=== PATIENT | male | born 1960 | race Caucasian/White ===

== ENCOUNTER 2021-01-16 10:46 | Day surgery (SDC) | payer BC ==
[~2021-01-16] VITALS: Ht 188 cm; Wt 100.5 kg
[~2021-01-16 10:46] MED LIST: AMLO10 PO; ATEN50 PO; Azopt10 ML BOTHEYES; Azopt10 ML LEFTEYE; FERROUS SULFAT325 M3 PO; LISHYD2025 PO; LISINOPRIL-HCT1 EAC1 PO; METF500 PO; NORVASC10 MG PO; Prinivil10 MG PO
== END 2021-01-16 13:27 | disposition home or self-care (01) ==
LOC: ORSCSDS 10:46
PROVIDERS: Internal Medicine Gastroenterology
PROC: 0DBM8ZX Excision of Descending Colon, Via Natural or Artificial Opening Endoscopic, Diagnostic (ICD-10-PCS; principal; 2021-01-16 12:00)
PROC: 0DB78ZX Excision of Stomach, Pylorus, Via Natural or Artificial Opening Endoscopic, Diagnostic (ICD-10-PCS; principal; 2021-01-16 12:00)
PROC: 0DB58ZX Excision of Esophagus, Via Natural or Artificial Opening Endoscopic, Diagnostic (ICD-10-PCS; principal; 2021-01-16 12:00)
PROC: 0DBK8ZX Excision of Ascending Colon, Via Natural or Artificial Opening Endoscopic, Diagnostic (ICD-10-PCS; principal; 2021-01-16 12:00)
DX: D50.9 Iron deficiency anemia, unspecified (principal); K21.9 Gastro-esophageal reflux disease without esophagitis; K22.70 Barrett's esophagus without dysplasia; D12.2 Benign neoplasm of ascending colon; D12.4 Benign neoplasm of descending colon; K44.9 Diaphragmatic hernia without obstruction or gangrene; K29.70 Gastritis, unspecified, without bleeding; K57.30 Diverticulosis of large intestine without perforation or abscess without bleeding; K64.8 Other hemorrhoids; K64.4 Residual hemorrhoidal skin tags; I10 Essential (primary) hypertension; G47.33 Obstructive sleep apnea (adult) (pediatric); E11.9 Type 2 diabetes mellitus without complications; Z79.899 Other long term (current) drug therapy; Z79.84 Long term (current) use of oral hypoglycemic drugs
CPT/HCPCS: 82947; 88305; 88342; J2704; J7120

== ENCOUNTER → 2021-04-02 | Outpatient (CLI) | payer BC | END | disposition home or self-care (01) | LOC: LAB 18:18 → LAB SHORT 18:18 | DX: N39.0 Urinary tract infection, site not specified (principal) | CPT/HCPCS: 87086 ==